=== PATIENT | female | born 1980 | race Caucasian/White ===

== ENCOUNTER 2017-07-12 19:43 | Inpatient (IN) | payer OTHER ==
[2017-07-12] MEDS ORDERED: LORAZEPAM 0.5 MG TAB PO (21:30)
[2017-07-12] MEDS ORDERED: ONDANSETRON 4 MG INJ IV (21:30)
[2017-07-12] MEDS ORDERED: ALBUTEROL/IPRATROPIUM (NEB) 3 ML AMP HHN (21:30)
[2017-07-12] MEDS: morphine 2 MG INJ IV (23:20)
[2017-07-12] MEDS: IPRATROPIUM (NEB) 0.5 MG/2.5 ML AMP HHN (23:26)
[2017-07-12] MEDS: LEVALBUTEROL (NEB) 0.63 MG/3 ML AMP HHN (23:26)
[2017-07-13 00:58] LABS: ADD MAN DIFF? NO
[2017-07-13 00:59] LABS: WHITE BLOOD COUNT 8.6 10^3/ul (4.8-10.8)
[2017-07-13 00:59] LABS: BASOPHILS % 0.3 % (0.0-2.0); EOSINOPHILS % 0.1 % (0.0-7.0); HEMOGLOBIN 13.3 g/dl (12.0-16.0); LYMPHOCYTES # 0.6 10^3/ul (0.8-2.9); LYMPHOCYTES % 7.1 % (15.0-51.0); MEAN CORPUSCULAR HEMOGLOBIN 29.9 pg (29.0-33.0); MEAN CORPUSCULAR HGB CONC 34.1 g/dl (32.0-37.0); MEAN CORPUSCULAR VOLUME 87.6 fl (82.0-101.0); MEAN PLATELET VOLUME 9.1 fl (7.4-10.4); MONOCYTE # 0.5 10^3/ul (0.3-0.9); MONOCYTES % 6.1 % (0.0-11.0); NEUTROPHIL # 7.4 10^3/ul (1.6-7.5); NEUTROPHILS % 85.9 % (39.0-77.0); PLATELET COUNT 225 10^3/UL (140-415); RED BLOOD COUNT 4.45 10^6/ul (4.20-5.40); RED CELL DISTRIBUTION WIDTH 13.1 % (11.5-14.5)
[2017-07-13 01:20] LABS: ALANINE AMINOTRANSFERASE 38 IU/L (13-69); ALBUMIN 4.2 g/dl (3.3-4.9); ALBUMIN/GLOBULIN RATIO 1.31; ALKALINE PHOSPHATASE 81 IU/L (42-121); ANION GAP 17 (8-16); ASPARTATE AMINO TRANSFERASE 52 IU/L (15-46); BILIRUBIN,INDIRECT 0.5 mg/dl (0-1.1); BILIRUBIN,TOTAL 0.5 mg/dl (0.2-1.3); BLOOD UREA NITROGEN 8 mg/dl (7-20); CALCIUM 9.9 mg/dl (8.4-10.2); CARBON DIOXIDE 27 mmol/L (21-31); CHLORIDE 106 mmol/L (97-110); CREATININE 0.47 mg/dl (0.44-1.00); GLUCOSE 59 mg/dl (70-220); MAGNESIUM 2.3 mg/dl (1.7-2.5); PHOSPHORUS 3.3 mg/dl (2.5-4.9); POTASSIUM 3.6 mmol/L (3.5-5.1); SODIUM 146 mmol/L (135-144); TOTAL PROTEIN 7.4 g/dl (6.1-8.1)
[2017-07-13] MEDS ORDERED: DICYCLOMINE 10 MG CAP PO (04:30)
[2017-07-13] MEDS: METHYLPREDNISOLONE 125 MG INJ IV ×2 (05:13→13:11)
[2017-07-13] MEDS: PANTOPRAZOLE (EC) 40 MG TAB PO (05:13)
[2017-07-13] MEDS: IPRATROPIUM (NEB) 0.5 MG/2.5 ML AMP HHN ×3 (05:20→12:48)
[2017-07-13] MEDS: LEVALBUTEROL (NEB) 0.63 MG/3 ML AMP HHN ×3 (05:20→12:49)
[2017-07-13 06:38] LABS: ADD UMIC NO; UR ASCORBIC ACID NEGATIVE (NEGATIVE); UR BILIRUBIN (Dip) NEGATIVE (NEGATIVE); UR BLOOD (Dip) NEGATIVE (NEGATIVE); UR CLARITY CLEAR (CLEAR); UR COLOR YELLOW (YELLOW); UR GLUCOSE (Dip) NEGATIVE (NEGATIVE); UR KETONES (Dip) NEGATIVE (NEGATIVE); UR LEUKOCYTE ESTERASE (Dip) NEGATIVE Leu/ul (NEGATIVE); UR NITRITE (Dip) NEGATIVE (NEGATIVE); UR SPECIFIC GRAVITY (Dip) 1.024 (1.003-1.030); UR TOTAL PROTEIN (Dip) NEGATIVE (NEGATIVE); UR UROBILINOGEN (Dip) NEGATIVE (NEGATIVE)
[2017-07-13] MEDS ORDERED: FAMOTIDINE 20 MG TAB PO (07:00)
[2017-07-13] MEDS ORDERED: IPRATROPIUM (NEB) 0.5 MG/2.5 ML AMP HHN (07:00)
[2017-07-13] MEDS ORDERED: ACETAMINOPHEN 325 MG TAB PO (07:00)
[2017-07-13] MEDS: traMADol 50 MG TAB PO ×2 (08:19→12:10)
[2017-07-13] MEDS ORDERED: morphine 2 MG INJ IV (10:00)
[2017-07-13] MEDS: GUAIFENESIN/DM 5ML CUP PO (10:31)
[2017-07-13] MEDS: LEVOFLOXACIN 500MG/D5W (PMX) 100 ML IVPB (10:34)
[2017-07-13] MEDS: NICOTINE (14 MG/24 HR) PATCH TRANSDERM (12:02)
[2017-07-13] MEDS: HYDROCODONE/APAP (5/325) TAB PO (12:26)
[2017-07-13] MEDS ORDERED: MONTELUKAST 10 MG TAB PO (21:00)
== END 2017-07-13 15:30 | disposition left against medical advice (07) | DRG 202 ==
LOC: TEL 19:43
DX: J40 Bronchitis, not specified as acute or chronic (principal); J45.901 Unspecified asthma with (acute) exacerbation; J44.1 Chronic obstructive pulmonary disease with (acute) exacerbation; G43.A0 Cyclical vomiting, in migraine, not intractable; Z72.0 Tobacco use; K20.9 Esophagitis, unspecified; K29.70 Gastritis, unspecified, without bleeding; Z59.0 Homelessness
CPT/HCPCS: 71250; 80053; 81003; 82962; 83735; 84100; 85025; 87081; 87086; 87400; 94640; 94664

== ENCOUNTER 2017-08-02 10:57 | Emergency (ER) | payer MEDICAID, OTHER ==
[2017-08-02] MEDS: predniSONE 20 MG TAB PO (13:12)
[2017-08-02] MEDS: ALBUTEROL 0.083% (NEB) 2.5 MG/3 ML AMP HHN ×2 (13:13→15:09)
[2017-08-02] MEDS: IPRATROPIUM (NEB) 0.5 MG/2.5 ML AMP HHN ×2 (13:13→15:09)
[2017-08-02] MEDS: AMOXICILLIN 500 MG CAP PO (13:53)
== END 2017-08-02 16:45 | disposition home or self-care (01) ==
LOC: FTE 10:57
DX: J45.901 Unspecified asthma with (acute) exacerbation (principal); F17.210 Nicotine dependence, cigarettes, uncomplicated; J44.9 Chronic obstructive pulmonary disease, unspecified
CPT/HCPCS: 94640; 94664; 99284-25

== ENCOUNTER 2017-08-04 00:21 | Emergency (ER) | payer MEDICAID ==
[2017-08-04] MEDS: IPRATROPIUM (NEB) 0.5 MG/2.5 ML AMP INH (01:53)
[2017-08-04] MEDS: ALBUTEROL 0.5% (NEB) 2.5 MG/0.5 ML AMP INH (01:54)
[2017-08-04] MEDS: DEXAMETHASONE 10 MG/ML 1 ML INJ IM (01:56)
== END 2017-08-04 03:35 | disposition home or self-care (01) ==
LOC: FTE 00:21
DX: J45.901 Unspecified asthma with (acute) exacerbation (principal); M54.31 Sciatica, right side; Z87.891 Personal history of nicotine dependence
CPT/HCPCS: 94664; 96372; 99284-25

== ENCOUNTER 2017-08-07 12:45 | Emergency (ER) | payer MEDICAID ==
[2017-08-07] MEDS ORDERED: ALBUTEROL HFA 8 GM INHALER INH (13:30)
[2017-08-07] MEDS: IPRATROPIUM (NEB) 0.5 MG/2.5 ML AMP NEB (13:45)
[2017-08-07] MEDS: LEVALBUTEROL (NEB) 1.25 MG/0.5 ML AMP INH (13:45)
== END 2017-08-07 14:55 | disposition home or self-care (01) ==
LOC: FTE 12:45
DX: J45.901 Unspecified asthma with (acute) exacerbation (principal); F17.210 Nicotine dependence, cigarettes, uncomplicated; J44.9 Chronic obstructive pulmonary disease, unspecified
CPT/HCPCS: 94664; 99283-25

== ENCOUNTER 2018-09-03 05:33 | Emergency (ER) | payer MEDICAID ==
[2018-09-03] MEDS: DEXAMETHASONE 10 MG/ML 1 ML INJ IM (06:37)
[2018-09-03] MEDS: ALBUTEROL 0.083% (NEB) 2.5 MG/3 ML AMP HHN (06:43)
[2018-09-03] MEDS: IPRATROPIUM (NEB) 0.5 MG/2.5 ML AMP HHN (06:43)
[2018-09-03] MEDS: CEFTRIAXONE 1 GM INJ IM (07:27)
[2018-09-03] MEDS: LIDOCAINE 1% (MPF) 5 ML VIAL INJ (07:27)
== END 2018-09-03 07:38 | disposition home or self-care (01) ==
LOC: FTE 07:38
DX: J18.9 Pneumonia, unspecified organism (principal); J44.9 Chronic obstructive pulmonary disease, unspecified; F17.210 Nicotine dependence, cigarettes, uncomplicated; Z59.0 Homelessness
CPT/HCPCS: 71045; 94664; 96372; 99284-25

== ENCOUNTER 2018-11-12 02:30 | Emergency (ER) | payer MEDICAID ==
[2018-11-12] MEDS: METHYLPREDNISOLONE 125 MG INJ IV (03:08)
[2018-11-12 03:19] LABS: ADD MAN DIFF? NO
[2018-11-12 03:20] LABS: BASOPHIL # 0.1 10^3/ul (0.0-0.1); BASOPHILS % 1.1 % (0.0-2.0); EOSINOPHILS # 0.8 10^3/ul (0.0-0.5); EOSINOPHILS % 10.6 % (0.0-7.0); HEMATOCRIT 39.3 % (37.0-47.0); LYMPHOCYTES # 1.6 10^3/ul (0.8-2.9); LYMPHOCYTES % 22.5 % (15.0-51.0); MEAN CORPUSCULAR HEMOGLOBIN 29.5 pg (29.0-33.0); MEAN CORPUSCULAR HGB CONC 33.1 g/dl (32.0-37.0); MEAN CORPUSCULAR VOLUME 89.3 fl (82.0-101.0); MEAN PLATELET VOLUME 9.1 fl (7.4-10.4); MONOCYTE # 0.8 10^3/ul (0.3-0.9); MONOCYTES % 10.7 % (0.0-11.0); NEUTROPHIL # 3.9 10^3/ul (1.6-7.5); PLATELET COUNT 211 10^3/UL (140-415); RED CELL DISTRIBUTION WIDTH 12.4 % (11.5-14.5)
[2018-11-12 03:20] LABS: WHITE BLOOD COUNT 7.1 10^3/ul (4.8-10.8)
[2018-11-12] MEDS: IPRATROPIUM (NEB) 0.5 MG/2.5 ML AMP INH (03:24)
[2018-11-12] MEDS: ALBUTEROL 0.5% (NEB) 2.5 MG/0.5 ML AMP INH (03:24)
[2018-11-12 03:47] LABS: ANION GAP 8 (5-13); BLOOD UREA NITROGEN 13 mg/dl (7-20); CARBON DIOXIDE 31 mmol/L (21-31); CHLORIDE 98 mmol/L (97-110); CREATININE 0.69 mg/dl (0.44-1.00); Estimated GFR > 60 mL/min (>60); GLUCOSE 85 mg/dl (70-220); POTASSIUM 3.4 mmol/L (3.5-5.1); SODIUM 137 mmol/L (135-144)
== END 2018-11-12 05:55 | disposition home or self-care (01) ==
LOC: E/R 02:30
DX: J45.901 Unspecified asthma with (acute) exacerbation (principal); F17.210 Nicotine dependence, cigarettes, uncomplicated; R40.2142 Coma scale, eyes open, spontaneous, at arrival to emergency department; R40.2362 Coma scale, best motor response, obeys commands, at arrival to emergency department; R40.2252 Coma scale, best verbal response, oriented, at arrival to emergency department
CPT/HCPCS: 71045; 80048; 81025; 85025; 94644; 96374; 99284-25